=== PATIENT | male | born 1955 | race American Indian/Alaskan Native ===

== ENCOUNTER 2017-04-08 19:40 | Emergency (ER) | payer OTHER ==
--- NOTE | 2017-04-08 21:00 | Emergency Department Report ---
ED Male HPI - General Chief complaint: Urogenital-Male Stated complaint: DRAIN BAG BROKEN Source: patient Mode of arrival: Ambulatory Limitations: No Limitations - History of Present Illness Initial comments: 61-year-old male presents to the hospital complaining of accidentally breaking his Morales drainage tube catheter one hour prior to arrival. On 03/21/2017 patient had a prostatectomy due to prostate cancer. He had bilateral nephrostomy tube placement and a rlq drainage catheter placed while his "bladder was healing". Patient had accidentally moved from nephrostomy tubes today so that urine may follow-up with the bladder. After his visit with the Urologist pt accidentally broke the drainage cath tube from the bag. He placed the distal end of the catheter and the side of a water bottle with tape to catch the urine drainage. Patient complains of mild lower abdominal pain secondary to ongoing constipation. + morales cath in penis with continued bloody urine drainage. Patient stated he had a large bowel movement yesterday after drinking warm prune juice and he is also taking MiraLAX. No bowel movement reported today. Patient taken pain medication intermittently. No reports of fever, nausea, or vomiting. - Related Data Home Medications Medication Instructions Recorded Confirmed Last Taken metFORMIN [Glucophage] 500 mg PO DAILY 04/06/14 04/06/14 Unknown Previous Rx's Medication Instructions Recorded Last Taken Type Cephalexin [Keflex] 500 mg PO QID #40 capsule 04/06/14 Unknown Rx Cyclobenzaprine [Flexeril] 10 mg PO TID PRN #30 tablet 11/19/15 Unknown Rx HYDROcodone/APAP 10-325 [[place] 1 each PO Q6HR PRN #16 tablet 11/19/15 Unknown Rx 10-325 mg TAB] Ibuprofen [Motrin] 800 mg PO Q8HR PRN #30 tablet 11/19/15 Unknown Rx HYDROcodone/APAP 5-325 [[place] 1 each PO Q6HR PRN #15 tablet 04/08/17 Unknown Rx 5/325] Lactulose [Kristalose] 20 gm PO QDAY PRN #5 packet 04/08/17 Unknown Rx Allergies Allergy/AdvReac Type Severity Reaction Status Date / Time No Known Allergies Allergy Verified 04/06/14 02:57 ED Review of Systems ROS: Stated complaint: DRAIN BAG BROKEN Other details as noted in HPI Comment: All other systems reviewed and negative Other: Constitutional: No fevers chills Eyes: No eye pain visual changes ENT: No ear pain or throat pain Neck: Denies pain Respiratory: Denies cough wheezing shortness of breath Cardiovascular: Denies chest pain, palpitations, syncope GI: as per hpi Musculoskeletal: Denies back pain, Skin: Denies rash, lesions, erythema Neurologic: Denies headache, numbness, weakness Psychiatric: Denies suicidal ideation, hallucinations ED Past Medical Hx - Past Medical History Previous Medical History?: Yes Hx Diabetes: Yes Additional medical history: sciatica - Surgical History Past Surgical History?: Yes Additional Surgical History: PROSTECTOMY. right hand - Social History Smoking Status: Never Smoker Substance Use Type: None - Medications Home Medications: Home Medications Medication Instructions Recorded Confirmed Last Taken Type Cephalexin [Keflex] 500 mg PO QID #40 capsule 04/06/14 Unknown Rx metFORMIN [Glucophage] 500 mg PO DAILY 04/06/14 04/06/14 Unknown History Cyclobenzaprine [Flexeril] 10 mg PO TID PRN #30 tablet 11/19/15 Unknown Rx HYDROcodone/APAP 10-325 [[place] 1 each PO Q6HR PRN #16 tablet 11/19/15 Unknown Rx 10-325 mg TAB] Ibuprofen [Motrin] 800 mg PO Q8HR PRN #30 tablet 11/19/15 Unknown Rx HYDROcodone/APAP 5-325 [[place] 1 each PO Q6HR PRN #15 tablet 04/08/17 Unknown Rx 5/325] Lactulose [Kristalose] 20 gm PO QDAY PRN #5 packet 04/08/17 Unknown Rx ED Physical Exam - General Limitations: No Limitations - Other Other exam information: General: No limitations, patient is alert in no acute distress Head exam: Atraumatic, normocephalic Eyes exam: Normal appearance, pupils equal reactive to light, extraocular movements intact ENT: Moist mucous membrane, normal oropharynx Neck exam: Normal inspection, full range of motion, no meningismus nontender Respiratory exam: Clear to auscultation bilateral, no wheezes, rales, crackles Cardiovascular: Normal rate and rhythm, normal heart sounds Abdomen: Soft, nondistended, mild lower abdominal tenderness to palpation. Right sided suprapubic urinary catheter tube with drainage into the attached water bottle. normal bowel sounds, no rebound, or guarding Extremity: Full range of motion normal inspection no deformity Back: Normal Inspection, full range of motion, bilateral nephrostomy tubes without backs and closed off Neurologic: Alert, oriented x3, cranial nerves intact, no motor or sensory deficit Psychiatric: normal affect, normal mood Skin: Warm, dry, intact ED Course Vital Signs 04/08/17 04/08/17 04/08/17 20:19 20:39 20:40 Temperature 98.3 F Pulse Rate 100 H 91 H 91 H Respiratory 24 17 Rate Blood Pressure 114/83 116/80 Blood Pressure [Left] O2 Sat by Pulse 100 Oximetry 04/08/17 04/08/17 04/08/17 20:48 20:51 21:01 Temperature Pulse Rate 89 90 89 Respiratory 17 15 19 Rate Blood Pressure 114/79 101/72 Blood Pressure 116/80 [Left] O2 Sat by Pulse 98 Oximetry 04/08/17 04/08/17 04/08/17 21:11 21:21 21:31 Temperature Pulse Rate 91 H 98 H 91 H Respiratory 16 17 17 Rate Blood Pressure 101/72 106/76 108/68 Blood Pressure [Left] O2 Sat by Pulse Oximetry 04/08/17 04/08/17 21:41 21:51 Temperature Pulse Rate 91 H 89 Respiratory 13 15 Rate Blood Pressure 108/68 112/77 Blood Pressure [Left] O2 Sat by Pulse Oximetry - Reevaluation(s) Reevaluation #1: 04/08/17 22:10 Patient requested strong medications for pain. His tramadol is not helping. - Consultations Consultation #1: 04/08/17 21:00 Dr Knox paged through answering service with [place] 04/08/17 21:15 This was discussed with Dr. Chamberlain's partner. He reviewed medical record and was able to clarify recent procedure. Patient has a leak at the urethra and they are waiting for it to heal after the procedure. Bilateral nephrostomy tubes were placed to invert urine flow. Patient has a Morales catheter to a surgical drain at the right lower quadrant for residual bladder/urethra leaking. ED Medical Decision Making - Medical Decision Making Patient informed that narcotics including tramadol may increase constipation. He was prescribed lactulose as needed. He also had mag citrate at the house but he has not yet taken. Patient cautioned to use narcotics sparingly because may worsen abdominal pain secondary to constipation. We were able to place a drainage bag on the broken catheter tubing - Differential Diagnosis cath drainage tube dysfunction, consitpation Critical Care Time: No Critical care attestation.: If time is entered above; I have spent that time in minutes in the direct care of this critically ill patient, excluding procedure time. ED Disposition Clinical Impression: ALEX drain, broken, Constipation, S/P prostatectomy, Prostate cancer Disposition: DISCHARGED TO HOME OR SELFCARE Is pt being admited?: No Does the pt Need Aspirin: No Condition: Stable Instructions: Morales Catheter Placement and Care (ED), Dipesh-Helms Drain Care (ED) Additional Instructions: You have been provided discharge instructions for ALEX drain care and Morales catheter care. You do have a postsurgical drainage tube however, it is slightly different from a ALEX tube. Please return if symptoms worsen as indicated by discharge instructions. Follow-up with the urologist as scheduled. Return if symptoms worsen. He requested stronger medication for pain. Prescribed hydrocodone. Please note that when taking this medication to her constipation and therefore you're abdominal pain may worsen. You have an prescribed lactulose in case of worsening constipation. Prescriptions: HYDROcodone/APAP 5-325 [[place] 5/325] 1 each PO Q6HR PRN #15 tablet PRN Reason: Pain Lactulose [Kristalose] 20 gm PO QDAY PRN #5 packet PRN Reason: Constipation Referrals: your, urologist [Other] - 3-5 Days Time of Disposition: 22:14
[2017-04-08] MEDS ORDERED: NORCO 5/325 PO ONE (22:06)
[2017-04-08 22:23] VITALS: BP 117/75
== END 2017-04-08 22:23 | disposition home or self-care (01) ==
LOC: ED 19:40
DX: T83.032A Leakage of nephrostomy catheter, initial encounter (principal); T83.031A Leakage of indwelling urethral catheter, initial encounter; K59.00 Constipation, unspecified; E11.9 Type 2 diabetes mellitus without complications; Z90.79 Acquired absence of other genital organ(s)
CPT/HCPCS: 99282

== ENCOUNTER 2019-09-29 01:43 | Emergency (ER) | payer BC, OTHER ==
[2019-09-29 01:50] VITALS: BP 104/74
== END 2019-09-29 02:30 | disposition left against medical advice (07) ==
LOC: ED 01:43
DX: R30.0 Dysuria (principal); Z53.21 Procedure and treatment not carried out due to patient leaving prior to being seen by health care provider

== ENCOUNTER 2019-10-03 20:31 | Emergency (ER) | payer BC ==
--- NOTE | 2019-10-03 20:44 | Emergency Department Report ---
Blank Doc - Documentation Documentation: 63-year-old male that presents with unable to urinate. Stated has been on morales cath and has removed it but is not able to urinate again. This initial assessment/diagnostic orders/clinical plan/treatment(s) is/are subject to change based on patient's health status, clinical progression and re- assessment by fellow clinical providers in the ED. Further treatment and workup at subsequent clinical providers discretion. Patient/guardians urged not to elope from the ED as their condition may be serious if not clinically assessed and managed. Initial orders include: 1- Patient sent to [facility] for further evaluation and treatment
[2019-10-03 20:47] VITALS: BP 104/72
[2019-10-04 00:16] LABS: Bilirubin,Urine NEG (Negative); Blood,Urine NEG (Negative); Color,Urine Yellow (Yellow); Protein,Urine <15 mg/dL mg/dL (Negative)
--- NOTE | 2019-10-04 01:25 | Emergency Department Report ---
ED Male HPI - General Chief complaint: Urogenital-Male Stated complaint: CANT URINATE Time Seen by Provider: 10/03/19 20:42 Source: patient Mode of arrival: Ambulatory Limitations: No Limitations - History of Present Illness Initial comments: Patient is a 63 yo AA male with a h/o HTN and BPH and s/p Prostatectomy who presents to the ED with c/o acute onset persistent urinary urgency and frequency and urinary retention for 8 hours. Patient denies abdominal pain, fever, chills, hematuria, low back pain, dizziness, testicular pain or diarrhea or nausea and vomiting. MD Complaint: other (Urinary retention) -: Sudden, hour(s) (2) Location: abdomen (suprapubic;urinary retention) Radiation: none Severity: moderate Severity scale (0 -10): 6 Quality: dull (pressure) Consistency: constant Improves with: urination Worsens with: none denies other symptoms, urinary retention. denies: discharge, swelling, mass, rash, blood in urine, dysuria, fever, nausea/vomiting, incontinence - Related Data Sexually active: Yes Home Medications Medication Instructions Recorded Confirmed Last Taken metFORMIN [Glucophage] 500 mg PO DAILY 04/06/14 04/06/14 Unknown Previous Rx's Medication Instructions Recorded Last Taken Type Cephalexin [Keflex] 500 mg PO QID #40 capsule 04/06/14 Unknown Rx Cyclobenzaprine [Flexeril] 10 mg PO TID PRN #30 tablet 11/19/15 Unknown Rx HYDROcodone/APAP 10-325 [[place] 1 each PO Q6HR PRN #16 tablet 11/19/15 Unknown Rx 10-325 mg TAB] Ibuprofen [Motrin] 800 mg PO Q8HR PRN #30 tablet 11/19/15 Unknown Rx HYDROcodone/APAP 5-325 [[place] 1 each PO Q6HR PRN #15 tablet 04/08/17 Unknown Rx 5/325] Lactulose [Kristalose] 20 gm PO QDAY PRN #5 packet 04/08/17 Unknown Rx Allergies Allergy/AdvReac Type Severity Reaction Status Date / Time No Known Allergies Allergy Verified 04/06/14 02:57 ED Review of Systems ROS: Stated complaint: CANT URINATE Other details as noted in HPI Constitutional: denies: chills, fever Eyes: denies: eye pain, eye discharge, vision change ENT: denies: ear pain, throat pain Respiratory: denies: cough, shortness of breath, wheezing Cardiovascular: denies: chest pain, palpitations Endocrine: no symptoms reported Gastrointestinal: abdominal pain (suprapubic pressure). denies: nausea, diarrhea Genitourinary: urgency, frequency, other (urinary retention). denies: dysuria Musculoskeletal: denies: back pain, joint swelling, arthralgia Skin: denies: rash, lesions Neurological: denies: headache, weakness, paresthesias Psychiatric: denies: anxiety, depression Hematological/Lymphatic: denies: easy bleeding, easy bruising ED Past Medical Hx - Past Medical History Hx Diabetes: Yes Additional medical history: sciatica - Surgical History Additional Surgical History: PROSTECTOMY. right hand - Social History Smoking Status: Never Smoker Substance Use Type: None - Medications Home Medications: Home Medications Medication Instructions Recorded Confirmed Last Taken Type Cephalexin [Keflex] 500 mg PO QID #40 capsule 04/06/14 Unknown Rx metFORMIN [Glucophage] 500 mg PO DAILY 04/06/14 04/06/14 Unknown History Cyclobenzaprine [Flexeril] 10 mg PO TID PRN #30 tablet 11/19/15 Unknown Rx HYDROcodone/APAP 10-325 [[place] 1 each PO Q6HR PRN #16 tablet 11/19/15 Unknown Rx 10-325 mg TAB] Ibuprofen [Motrin] 800 mg PO Q8HR PRN #30 tablet 11/19/15 Unknown Rx HYDROcodone/APAP 5-325 [[place] 1 each PO Q6HR PRN #15 tablet 04/08/17 Unknown Rx 5/325] Lactulose [Kristalose] 20 gm PO QDAY PRN #5 packet 04/08/17 Unknown Rx ED Physical Exam - General Limitations: No Limitations General appearance: alert, in no apparent distress - Head Head exam: Present: atraumatic, normocephalic, normal inspection - Eye Eye exam: Present: normal appearance, PERRL, EOMI Pupils: Present: normal accommodation - ENT ENT exam: Present: normal exam, normal orophraynx, mucous membranes moist, TM's normal bilaterally, normal external ear exam - Neck Neck exam: Present: normal inspection, full ROM - Respiratory Respiratory exam: Present: normal lung sounds bilaterally. Absent: respiratory distress, wheezes, rales, rhonchi, chest wall tenderness, accessory muscle use, prolonged expiratory - Cardiovascular Cardiovascular Exam: Present: normal rhythm, tachycardia, normal heart sounds. Absent: systolic murmur, diastolic murmur, rubs, gallop - GI/Abdominal GI/Abdominal exam: Present: soft, normal bowel sounds. Absent: tenderness, guarding, rebound, hyperactive bowel sounds, hypoactive bowel sounds, organomegaly - exam: Present: normal inspection, circumcision. Absent: testicular tenderness, urethral discharge, scrotal swelling, vertical testicular lie - Extremities Exam Extremities exam: Present: normal inspection, full ROM, normal capillary refill - Back Exam Back exam: Present: normal inspection, full ROM. Absent: CVA tenderness (L), muscle spasm, paraspinal tenderness - Neurological Exam Neurological exam: Present: alert, oriented X3, CN II-XII intact, normal gait, reflexes normal - Psychiatric Psychiatric exam: Present: normal affect, normal mood - Skin Skin exam: Present: warm, dry, intact, normal color. Absent: rash ED Course Vital Signs 10/03/19 10/03/19 20:46 21:25 Temperature 97.7 F Pulse Rate 107 H Respiratory 19 20 Rate Blood Pressure 104/72 O2 Sat by Pulse 93 Oximetry ED Medical Decision Making - Medical Decision Making This is an 63-year-old male who presented to the ED with urinary retention for 8 hours. In the ED, patient is alert and oriented x 3, and is in no acute distress but anxious. Patient had Porras Catheter placed and this relieved his retention; and UA test is unremarkable. Patient was discharged home and advised to follow up with her Urologist in 2-3 days for reevaluation. Patient was advised to return to the ED immediately if symptoms get worse. - Differential Diagnosis Urinary retention; UTI; BPH; Kidney stones Critical care attestation.: If time is entered above; I have spent that time in minutes in the direct care of this critically ill patient, excluding procedure time. ED Disposition Clinical Impression: Acute urinary retention Disposition: -01 TO HOME OR SELFCARE Is pt being admited?: No Does the pt Need Aspirin: No Condition: Stable Instructions: Urinary Retention in Men (ED) Additional Instructions: Follow-up with your urologist in the next 2-3 days for reevaluation. Return to ED immediately if symptoms get worse. Referrals: TR MERINO MD [Primary Care Provider] - 3-5 Days Time of Disposition: :14 Print Language: SWEDISH
== END 2019-10-04 01:30 | disposition home or self-care (01) ==
LOC: ED 20:31
DX: R33.9 Retention of urine, unspecified (principal); I10 Essential (primary) hypertension; E11.9 Type 2 diabetes mellitus without complications; Z79.84 Long term (current) use of oral hypoglycemic drugs; Z79.899 Other long term (current) drug therapy; Z79.1 Long term (current) use of non-steroidal anti-inflammatories (NSAID); Z98.890 Other specified postprocedural states
CPT/HCPCS: 51702; 81001

== ENCOUNTER 2019-10-06 19:09 | Emergency (ER) | payer BC ==
[2019-10-06 19:26] VITALS: BP 143/101
[2019-10-06 21:50] LABS: Bilirubin,Urine NEG (Negative); Blood,Urine LG (Negative); Color,Urine Red (Yellow); Urobilinogen,Urine < 2.0 mg/dL (<2.0)
[2019-10-06 21:52] LABS: RBC,Urine > 182.0 /HPF (0.0-6.0); WBC,Urine > 182.0 /HPF (0.0-6.0)
--- NOTE | 2019-10-07 06:48 | Emergency Department Report ---
ED Male HPI - General Chief complaint: Urogenital-Male Stated complaint: CANT URINATE Time Seen by Provider: 10/06/19 20:08 Source: patient Mode of arrival: Ambulatory Limitations: No Limitations - History of Present Illness Initial comments: 63-year-old Afro-[place] male with past history of prostate cancer 2017 surgical excision under the care of urology was placed in a urinary Spring tear device for voiding reports much department complaining of seen possible blood in his urinary bag. Reports she is having some issues since implantation of this device and had to get a catheter placed is due to follow up with his urologist this coming week. He grew cyst suspicious when he had some pressure in his bladder but wasn't unable to get flow to his Porras catheter after manipulation he states that he did notice a dark substance that came down that looks like it may have been strained. He was unsure if he had warms and his his bladder wanted to be evaluated for that reason. He does report no pain. Denies any fever, chills, sweats no chest pain palpitations no nausea vomiting. MD Complaint: dysuria Location: penis Radiation: none Severity scale (0 -10): 0 Improves with: none Worsens with: none - Related Data Home Medications Medication Instructions Recorded Confirmed Last Taken metFORMIN [Glucophage] 500 mg PO DAILY 04/06/14 04/06/14 Unknown Previous Rx's Medication Instructions Recorded Last Taken Type Cephalexin [Keflex] 500 mg PO QID #40 capsule 04/06/14 Unknown Rx Cyclobenzaprine [Flexeril] 10 mg PO TID PRN #30 tablet 11/19/15 Unknown Rx HYDROcodone/APAP 10-325 [[place] 1 each PO Q6HR PRN #16 tablet 11/19/15 Unknown Rx 10-325 mg TAB] Ibuprofen [Motrin] 800 mg PO Q8HR PRN #30 tablet 11/19/15 Unknown Rx HYDROcodone/APAP 5-325 [[place] 1 each PO Q6HR PRN #15 tablet 04/08/17 Unknown Rx 5/325] Lactulose [Kristalose] 20 gm PO QDAY PRN #5 packet 04/08/17 Unknown Rx Allergies Allergy/AdvReac Type Severity Reaction Status Date / Time No Known Allergies Allergy Verified 04/06/14 02:57 ED Review of Systems ROS: Stated complaint: CANT URINATE Other details as noted in HPI Comment: All other systems reviewed and negative ED Past Medical Hx - Past Medical History Previous Medical History?: Yes Hx Diabetes: Yes Additional medical history: sciatica - Surgical History Past Surgical History?: Yes Additional Surgical History: PROSTECTOMY. right hand - Social History Smoking Status: Never Smoker Substance Use Type: None - Medications Home Medications: Home Medications Medication Instructions Recorded Confirmed Last Taken Type Cephalexin [Keflex] 500 mg PO QID #40 capsule 04/06/14 Unknown Rx metFORMIN [Glucophage] 500 mg PO DAILY 04/06/14 04/06/14 Unknown History Cyclobenzaprine [Flexeril] 10 mg PO TID PRN #30 tablet 11/19/15 Unknown Rx HYDROcodone/APAP 10-325 [[place] 1 each PO Q6HR PRN #16 tablet 11/19/15 Unknown Rx 10-325 mg TAB] Ibuprofen [Motrin] 800 mg PO Q8HR PRN #30 tablet 11/19/15 Unknown Rx HYDROcodone/APAP 5-325 [[place] 1 each PO Q6HR PRN #15 tablet 04/08/17 Unknown Rx 5/325] Lactulose [Kristalose] 20 gm PO QDAY PRN #5 packet 04/08/17 Unknown Rx ED Physical Exam - General Limitations: No Limitations General appearance: alert, in no apparent distress - Head Head exam: Present: atraumatic, normocephalic - Eye Eye exam: Present: normal appearance - ENT ENT exam: Present: mucous membranes moist - Neck Neck exam: Present: normal inspection - Respiratory Respiratory exam: Present: normal lung sounds bilaterally. Absent: respiratory distress - Cardiovascular Cardiovascular Exam: Present: regular rate, normal rhythm. Absent: systolic murmur, diastolic murmur, rubs, gallop - GI/Abdominal GI/Abdominal exam: Present: soft, normal bowel sounds - Rectal Rectal exam: Present: deferred - exam: Present: other (Porras catheter is in place. His LP now he will spent a restrictive device is in his right testicle no signs of any cellulitis or swelling noted.) - Extremities Exam Extremities exam: Present: normal inspection - Back Exam Back exam: Present: normal inspection - Neurological Exam Neurological exam: Present: alert, oriented X3 - Psychiatric Psychiatric exam: Present: normal affect, normal mood - Skin Skin exam: Present: warm, dry, intact, normal color. Absent: rash ED Course Vital Signs 10/06/19 19:13 Temperature 98.3 F Pulse Rate 89 Respiratory 18 Rate Blood Pressure 143/101 O2 Sat by Pulse 99 Oximetry ED Medical Decision Making - Medical Decision Making The patient is clinically sober, AA&Ox3, free from distracting injury. Throughout our interactions in the ED today, the patient has demonstrated concrete thinking/reasoning, has maintained an radio performer/reasonable conversation, appears to have intact insight/judgment/reason and therefore in our opinion has capacity to make decisions. Given the patients presentation, we communicated our concern for infection or bleeding in the bladder in laymans terms. The patient verbalized an understanding of our worries. Mr. Martin is well aware that the ED evaluation is incomplete & many troublesome conditions have not been r/o. We have discussed the need for further ED w/u so we can get more information about his urinary device, Porras catheter, renal function and bladder condition. We have discussed the range of possible dx, potential testing & treatment options. Myself and the staff made numerous efforts to prevent the pt from leaving AMA. Our discussions included the potential outcomes of leaving AMA, including worsening of their condition, becoming permanently disabled/in pain/critically ill, or . Despite these efforts, we were unable to convince the pt to stay. The patient is refusing any further care and is leaving against medical advice. We have attempted to offer tx/rx/guidance for any dangerous conditions which are most likely and/or dangerous. We have answered all questions and have implored the patient to return [facility] to complete the w/u. A staff member chidi sed the patient consenting to AMA. - Differential Diagnosis bladder cancer, urinary urinary tract infection, interstitial cystitis, [facility] Critical care attestation.: If time is entered above; I have spent that time in minutes in the direct care of this critically ill patient, excluding procedure time. ED Disposition Clinical Impression: Acute urinary retention Disposition: DC-07 LEFT AGAINST MED ADVICE Is pt being admited?: No Does the pt Need Aspirin: No Condition: Stable Referrals: PRIMARY CARE, [Primary Care Provider] - 3-5 Days
== END 2019-10-06 20:50 | disposition left against medical advice (07) ==
LOC: ED 19:09
DX: R33.9 Retention of urine, unspecified (principal); E11.9 Type 2 diabetes mellitus without complications; Z79.84 Long term (current) use of oral hypoglycemic drugs; Z79.1 Long term (current) use of non-steroidal anti-inflammatories (NSAID); Z79.899 Other long term (current) drug therapy
CPT/HCPCS: 51702; 81001

== ENCOUNTER 2019-10-21 07:24 | Emergency (ER) | payer BC ==
[2019-10-21 07:59] VITALS: BP 110/78
[2019-10-21 08:41] LABS: Basophils % (Auto) 0.5 % (0.0-1.8); Eosinophils # (Auto) 0.7 K/mm3 (0.0-0.4); Eosinophils % (Auto) 10.3 % (0.0-4.3); Hematocrit 36.6 % (35.5-45.6); Hemoglobin 12.3 gm/dl (11.8-15.2); Lymphocytes # (Auto) 1.2 K/mm3 (1.2-5.4); Lymphocytes % (Auto) 16.7 % (13.4-35.0); Mean Corpuscular HGB Conc 34 % (32-34); Mean Corpuscular Volume 87 fl (84-94); Monocytes % (Auto) 13.9 % (0.0-7.3); Platelet Count 271 K/mm3 (140-440); Red Blood Count 4.22 M/mm3 (3.65-5.03); Red Cell Distribution Width 13.9 % (13.2-15.2)
[2019-10-21 08:45] LABS: Alanine Aminotransferase 26 units/L (7-56); Albumin 4.3 g/dL (3.9-5); BUN/Creatinine Ratio 17; Blood Urea Nitrogen 19 mg/dL (9-20); Calcium 9.2 mg/dL (8.4-10.2); Hemolysis Index 4
== END 2019-10-21 10:50 | disposition left against medical advice (07) ==
LOC: ED 07:24
DX: R31.9 Hematuria, unspecified (principal); Z53.21 Procedure and treatment not carried out due to patient leaving prior to being seen by health care provider
CPT/HCPCS: 36415; 80053; 85025